=== PATIENT | male | born 1990 | race Caucasian/White ===

== ENCOUNTER 2016-12-14 21:50 | Emergency (ER) | payer OTHER ==
[2016-12-14 22:32] LABS: % IMMATURE GRANULYOCYTES 0.3 % (0.0-1.1); ABSOLUTE IMMATURE GRANULOCYTES 0.02 10^3/uL (0.00-0.10); ADD DIFF? NO; ADD MORPH? NO; ADD SCAN? NO; ATYPICAL LYMPHOCYTE FLAG 0 (0-99); FRAGMENT RBC FLAG 0 (0-99); HEMATOCRIT 45.1 % (40.0-51.0); HEMOGLOBIN 15.4 g/dL (13.7-17.5); LEFT SHIFT FLG 0 (0-99); LIPEMIA HEMOLYSIS FLAG 90 (0-99); MEAN CELL HEMOGLOBIN 30.3 pg (27.9-34.1); MEAN CELL HEMOGLOBIN CONCENTR. 34.1 g/dL (32.4-36.7); MEAN CELL VOLUME 88.8 fL (81.5-99.8); MEAN PLATELET VOLUME 11.1 fL (8.7-11.7); PLATELET CLUMPS FLAG 0 (0-99); PLATELET COUNT 239 10^3/uL (150-400); RED BLOOD CELL COUNT 5.08 10^6/uL (4.40-6.38); RED CELL DISTRIBUTION WIDTH 13.8 % (11.5-15.2)
[2016-12-14 22:40] LABS: ANION GAP 13 mEq/L (8-16); CALCIUM 9.9 mg/dL (8.5-10.4); CARBON DIOXIDE 25 mEq/l (22-31); CHLORIDE 105 mEq/L (97-110); CREATININE 0.9 mg/dL (0.7-1.3); ETHANOL SERUM 236 mg/dL (0-10); GLOMERULAR FILTRATION RATE > 60; GLUCOSE 84 mg/dL (70-100); POTASSIUM 4.2 mEq/L (3.5-5.2); SALICYLATE < 1.0 mg/dL (2.0-20.0); SODIUM 143 mEq/L (134-144)
--- NOTE | 2016-12-14 22:53 | CPEKG ---
Heart Rate: 101 RR Interval: 594 P-R Interval: 148 QRSD Interval: 82 QT Interval: 348 QTC Interval: 452 P [place]: 66 QRS [place]: 33 T Wave [place]: 50 EKG Severity - OTHERWISE NORMAL ECG - EKG Impression: SINUS TACHYCARDIA Electronically Signed By: Wilmar Randall 15-Dec-2016 10:28:45
--- NOTE | 2016-12-14 22:56 | EDPHY ---
H & P Stated Complaint: M1 Took 1.5mg Clonazepam, tried to cut throat. - Personal History Current Tetanus/Diphtheria Vaccine: Unsure Current Tetanus Diphtheria and Acellular Pertussis (TDAP): Unsure - Medical/Surgical History Hx Asthma: No Hx Chronic Respiratory Disease: No Hx Diabetes: No Hx Cardiac Disease: No Hx Renal Disease: No Hx Cirrhosis: No Hx Alcoholism: No Hx HIV/AIDS: No Hx Splenectomy or Spleen Trauma: No Other PMH: marijuana user, heart murmur as a child. No Psych history. - Social History Smoking Status: Light smoker Time Seen by Provider: 12/14/16 22:14 HPI/ROS: CHIEF COMPLAINT: M1, suicidal ideation "just kill me" HISTORY OF PRESENT ILLNESS: 26-year-old male arrives via ambulance accompanied by police on an M1 hold after he intentionally ingested 1.5 mg of Klonopin then took a blunt knife and rub it against his anterior neck. This was a suicide attempt after his girlfriend broke up with him. . He admits to positive alcohol use. REVIEW OF SYSTEMS: A ten point review of systems was performed and is negative with the exception of the items mentioned in the HPI PAST MEDICAL & SURGICAL HISTORY: No pertinent medical or surgical history SOCIAL HISTORY: Positive alcohol use this evening PHYSICAL EXAM (Prior to examination, patient consented to physical exam, hands were washed and my usual and customary physical exam procedures followed) 1) GENERAL: Well-developed, well-nourished, alert and oriented. He is repeating "just kill me". He is crying. 2) HEAD: Normocephalic, atraumatic 3) HEENT: Pupils equal, round, reactive to light bilaterally. Sclera anicteric. 4) NECK: Full range of motion, anterior neck superficial transverse linear abrasion x2. No hematoma. Trachea midline. No crepitus. No abnormal voice.. 5) LUNGS: Clear auscultation bilaterally, no wheezes, no rhonchi, no retractions. 6) HEART: Regular rate and rhythm, no murmur, no heave, no gallop. 7) ABDOMEN: No guarding, no rebound, no focal tenderness, negative McBurney's, negative Lopez's, negative Rovsing's, negative peritoneal sign, 8) MUSCULOSKELETAL: Moving all extremities, no focal areas of tenderness, no obvious trauma. No peripheral edema or discoloration. 9) BACK: No CVA tenderness, no midline vertebral tenderness, no fluctuance, no step-off, no obvious trauma, no visual or palpable abnormality. 10) SKIN: No rash, no petechiae. 11) Psychiatric: Patient is oriented X 3, there is no agitation. DIFFERENTIAL DIAGNOSIS: in no particular include but not limited to depression , suicidal ideation, homicidal ideation (Russell Solo) Constitutional: Initial Vital Signs Temperature (C) 36.4 C 12/14/16 22:14 Heart Rate 95 12/14/16 22:14 Respiratory Rate 16 12/14/16 22:14 Blood Pressure 143/91 H 12/14/16 22:14 O2 Sat (%) 95 12/14/16 22:14 O2 Delivery Mode Room Air Allergies/Adverse Reactions: No Known Allergies Allergy (Unverified 12/14/16 22:13) Home Medications: Medication Instructions Recorded NK [No Known Home Meds] 12/14/16 Medical Decision Making ED Course/Re-evaluation: 11:11 p.m.: Patient increasingly agitated, has thrown his metal tray in the room. Will administer Ativan. Midnight: Care turned over to Dr Mancilla. Patient sobering prior to mental health evaluation. (Russell Solo) No acute events overnight. Patient signed over to Dr. Styles +ETOH has not been evaluated yet. (Edmond Mancilla) Other Provider: Patient's care accepted by [facility] at 7:00 a.m.. Patient is sleeping in without complaints. 9:00 a.m. patient accepted at [facility] by Dr. Weems. We will complete transfer paperwork. (Mc Styles) - Data Points Laboratory Results: Laboratory Results 12/14/16 22:10 12/14/16 22:10 Medications Given: Discontinued Medications Lorazepam (Ativan) 2 mg PO EDNOW ONE Stop: 12/14/16 23:12 Last Admin: 12/14/16 23:17 Dose: 2 mg Departure - Departure Disposition: Other Psych, Not [place] Clinical Impression: Attempted suicide, Suicidal ideation Alcohol intoxication Qualifiers: Complication of substance-induced condition: uncomplicated Qualified Code(s): F10.120 - Alcohol abuse with intoxication, uncomplicated Condition: Fair Referrals: Patient,NotPresent [Unknown] - As per Instructions
[2016-12-14 23:03] VITALS: RESP 18
[2016-12-14] MEDS ORDERED: LORazepam 1 MG TAB PO ONE (23:11)
[2016-12-14] MEDS ORDERED: LORazepam 1 MG TAB ONE ×2 (23:12)
[2016-12-15 07:59] VITALS: BP 124/97; PULSE 105; TEMP 98.8; O2SAT 93
== END 2016-12-15 10:40 ==
DX: T42.4X2A Poisoning by benzodiazepines, intentional self-harm, initial encounter (principal); F17.200 Nicotine dependence, unspecified, uncomplicated; F10.120 Alcohol abuse with intoxication, uncomplicated; S10.91XA Abrasion of unspecified part of neck, initial encounter; X78.1XXA Intentional self-harm by knife, initial encounter
CPT/HCPCS: 80305; G0480